=== PATIENT | male | born 1965 | race Two or more races ===

== ENCOUNTER 2019-01-14 07:47 | Inpatient (IN) | payer MEDICAID ==
[~2019-01-14] VITALS: Ht 185.4 cm; Wt 114.3 kg
--- NOTE | 2019-01-14 07:59 | NUR ---
[facility] SINCE A[facility] EMS TO ER C/O ABD PAIN 8/10 FOR 3 DAYS DID HAVE BM LAST NIGHT . O2 SATS RA 93 % AWAITING EVALUATION BY ER PROVIDER. N/C 3L 97%
[2019-01-14] MEDS ORDERED: IV NS 0.9% 1,000 ML BAG IV ONE ×2 (08:00→10:00)
[2019-01-14] MEDS ORDERED: HYDROMORPHONE INJ 2 MG/ML DISP.SYRIN IV ONE (08:00)
[2019-01-14] MEDS ORDERED: METOCLOPRAMIDE HCL 10 MG/2 ML VIAL IV ONE (08:00)
[2019-01-14 08:14] LABS: BASOPHILS # (AUTO) 0.1 /CMM (0.0-0.2); BASOPHILS % (AUTO) 0.6 % (0.0-2.0); HEMATOCRIT 35 % (39-51); HEMOGLOBIN 11.3 g/dL (13.5-17.5); LYMPHOCYTES # (AUTO) 0.6 /CMM (0.8-4.8); MEAN CORPUSCULAR HGB CONC 32 g/dl (31.0-36.0); MEAN CORPUSCULAR VOLUME 90 fL (80-96); MONOCYTES # (AUTO) 0.9 /CMM (0.1-1.30); MONOCYTES % (AUTO) 5.9 % (2.0-12.0); NEUTROPHILS # (AUTO) 14.2 /CMM (1.8-8.9); NEUTROPHILS % (AUTO) 89.5 % (43.0-81.0); PLATELET COUNT (AUTO) 314 /CMM (150-450); RED BLOOD CELL COUNT(AUTO) 3.93 MIL/uL (4.5-6.0); WHITE BLOOD COUNT (AUTO) 15.9 K/uL (4.3-11.0)
[2019-01-14] MEDS ORDERED: HYDROMORPHONE 1 MG/1 ML DISP.SYRIN ONE (08:14)
[2019-01-14] MEDS ORDERED: METOCLOPRAMIDE HCL 10 MG/2 ML VIAL ONE (08:15)
[2019-01-14 08:23] LABS: CALCIUM, SERUM 8.9 mg/dL (8.5-10.1); CARBON DIOXIDE 24 mmol/L (21-32); CHLORIDE 101 mmol/L (98-107); CREATININE 3.4 mg/dL (0.6-1.3); GLUCOSE 133 mg/dL (74-106); SODIUM SERUM 136 mmol/L (136-145); UREA NITROGEN, BLOOD 38 mg/dL (7-18)
[2019-01-14] MEDS ORDERED: LISI10TA5 PO (08:24)
[2019-01-14] MEDS ORDERED: PHEN100C4 PO (08:24)
[2019-01-14] MEDS ORDERED: INSU100I26 SQ (08:24)
[2019-01-14] MEDS ORDERED: ZOLP5TAB2 PO (08:24)
[2019-01-14] MEDS ORDERED: CITA10TA17 PO (08:24)
[2019-01-14] MEDS ORDERED: IBUP-1955 PO (08:24)
[2019-01-14] MEDS ORDERED: CLON0.1T PO (08:24)
[2019-01-14] MEDS ORDERED: PANT40TA2 PO (08:24)
[2019-01-14] MEDS ORDERED: DOCU-141 PO (08:24)
[2019-01-14] MEDS ORDERED: GABA-532 PO (08:24)
[2019-01-14] MEDS ORDERED: ZINC220C8 PO (08:24)
[2019-01-14] MEDS ORDERED: NALT50TA PO (08:24)
[2019-01-14] MEDS ORDERED: INSU100V11 SQ ×2 (08:24)
[2019-01-14] MEDS ORDERED: MAG30ORA PO (08:24)
[2019-01-14] MEDS ORDERED: TRAM50TA2 PO (08:24)
[2019-01-14] MEDS ORDERED: LEVE250T2 PO (08:24)
[2019-01-14] MEDS ORDERED: RIVA10TA PO (08:24)
[2019-01-14] MEDS ORDERED: HYDR-4354 PO (08:24)
[2019-01-14] MEDS ORDERED: METH-406 PO (08:24)
[2019-01-14 08:28] LABS: ALANINE AMINOTRANSFERASE 59 U/L (12-78); ALBUMIN 3.4 g/dL (3.4-5.0); ALKALINE PHOSPHATASE 196 U/L (46-116); ASPARTATE AMINOTRANSFERASE 45 U/L (15-37); BILIRUBIN,DIRECT 0.5 mg/dL (0.0-0.2); BILIRUBIN,TOTAL 1.2 mg/dL (0.2-1.0); LIPASE 45 U/L (73-393); TOTAL PROTEIN, SERUM 8.4 g/dL (6.4-8.2)
--- NOTE | 2019-01-14 09:00 | NUR ---
PT SLEEPING SOUNDLY RESP EVEN UNLABORED
--- NOTE | 2019-01-14 09:26 | NUR ---
MOTHER CALLLED CALLING TO SEE PATIENT UA SENT TO LAB PT HAS CATH URINE BROWNISH CLOUDY
[2019-01-14] MEDS ORDERED: ACETAMINOPHEN ES 500 MG TABLET ONE (09:59)
--- NOTE | 2019-01-14 09:59 | NUR ---
[facility]
[2019-01-14] MEDS ORDERED: ACETAMINOPHEN ES 500 MG TABLET PO ONE (10:00)
[2019-01-14] MEDS ORDERED: CEFTRIAXONE 1GM BAG (ER ONLY) 50 ML IV ONE (10:00)
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
[2019-01-14 10:22] LABS: APPEARANCE,URINE Turbid (CLEAR); BILIRUBIN,URINE SMALL (NEGATIVE); BLOOD, URINE Trace-intact Ery/uL (NEGATIVE); KETONES,URINE Negative (NEGATIVE); LEUKOCYTE ESTERASE ,URINE Large (NEGATIVE); NITRITE, URINE Positive (NEGATIVE); PROTEIN,URINE >=300 mg/dl (NEGATIVE); UGLUCOSE Negative (NEGATIVE); UROBILINOGEN,URINE 0.2 EU/dL (0.2)
[2019-01-14 10:26] LABS: PH,URINE >9.0 (5.0-8.0)
[2019-01-14 10:27] LABS: COLOR,URINE DARK YELLOW (YELLOW)
--- NOTE | 2019-01-14 10:45 | NUR ---
[facility]
--- NOTE | 2019-01-14 10:49 | NUR ---
PT GIVEN LUCIO CATH PER MD ORDER BLOOD AND CLOTS , NOTED THEN URINE YELLOW CLOUDY ROCPHEIN GIIVEN PER MD TEMP 98.5 CHANGED DIAPER yellow soft stool buttock skin good no breakdown
[2019-01-14 10:55] LABS: SQUAMOUS EPITHELIAL CELL,UR Few /HPF (None Seen); URINE AMORPHOUS PHOSPHATES Many /HPF (None Seen)
[2019-01-14 10:56] LABS: BACTERIA,URINE Many /HPF (None Seen)
--- NOTE | 2019-01-14 11:02 | NUR ---
306-2 TELE. PRIMARY NURSE AWARE.
--- NOTE | 2019-01-14 11:13 | NUR ---
[facility]
[2019-01-14 11:19] LABS: TRIPLE PHOSPHATE CRYSTAL,UR Few /HPF (None Seen)
--- NOTE | 2019-01-14 12:24 | NUR ---
TRANSFERED TO FLOOR
--- NOTE | 2019-01-14 12:25 | NUR ---
CLASSIFIED AD CLERKLEARNING SPECIALIST NOTES Received Patient asleep in bed via [place]. A/O x 2, lethargic. Noted VS BP 87/50 HR 112 RR 20 Temp 101F SPO2 98% on 3LPM via [place]. Patient seen by Oneil BREAUX at this time. Breathing even and unlabored with no respiratory distress. Patient noted snoring. No signs and symptoms of pain at this time. Telemonitor in place and operational reading Sinus Tach HR-114. Scott Cath in place and operational with clear, rust/daniel coloured urine and sediments noted. 20g PIV on RAC clean, dry, intact and flushing well. Stool collected per DNP at this time. Stool noted yellowish/brownish diarrhea. Skin assessment pictures taken and placed in chart. Mepilex placed on BILATERAL HEELS. Safety precautions in place. Bed locked and set to lowest position with side rails x 2 up. All needs rendered at this time. Family at bedside. Will continue to monitor.
[2019-01-14] MEDS ORDERED: DEXTROSE 50%-WATER 50 ML DISP.SYRIN IV PRN (13:00)
[2019-01-14] MEDS ORDERED: MAG HYDROX/AL HYDROX/SIMETH 30 ML UDC PO PRN (13:00)
[2019-01-14] MEDS ORDERED: Z GUARD REMEDY 2 OZ OINT TP PRN (13:00)
[2019-01-14] MEDS ORDERED: ZOLPIDEM TARTRATE 5 MG TABLET PO PRN (13:00)
[2019-01-14] MEDS ORDERED: MAGNESIUM HYDROXIDE 30 ML UDC PO PRN (13:00)
[2019-01-14] MEDS ORDERED: *INSULIN REGULAR(HUMULIN R)HUM 100 UNIT/ML VIAL SQ PRN (13:00)
[2019-01-14] MEDS ORDERED: ONDANSETRON HCL/PF 4 MG/2 ML VIAL IVP PRN (13:00)
[2019-01-14] MEDS ORDERED: HYDROMORPHONE INJ 2 MG/ML DISP.SYRIN IV PRN (13:00)
--- NOTE | 2019-01-14 13:00 | NUR ---
(Brother) Jolene (Mother) --cell --home
[2019-01-14] MEDS ORDERED: CLONIDINE HCL 0.1 MG TABLET PO PRN (13:30)
[2019-01-14] MEDS ORDERED: TRAMADOL HCL 50 MG TABLET PO PRN (13:30)
[2019-01-14] MEDS: ACETAMINOPHEN 325 MG TABLET PO PRN ×2 (14:01→21:08)
--- NOTE | 2019-01-14 14:05 | NUR ---
INDEPENDENT DISTRIBUTOR NOTES Noted 100.3F temp. Administered Tylenol 650mg PO. Patient resting and asleep in bed. VS stable. BP 114/93. Telemonitor reading Sinus Tach HR-114. SPO2 100% on 3LPM via NC. Will continue to monitor.
[2019-01-14] MEDS ORDERED: PIPERACILLIN /TAZOBACTAM 3.375 G in IV D5W 50 ML IV ONE (15:00)
[2019-01-14 15:04] LABS: OCCULT BLOOD STOOL NEGATIVE (NEGATIVE)
--- NOTE | 2019-01-14 16:39 | NUR ---
INSPECTOR RAW QUARTZ NOTES Temp 103.1F BP 100/62 HR 119 Placed cool towel on forehead and removed one blanket. Notified Oneil BREAUX. NNO. Follow up on Urine and Blood culture. Will continue to monitor.
[2019-01-14] MEDS: DOCUSATE SODIUM 100 MG CAPSULE PO SCH (17:00)
[2019-01-14] MEDS: CITALOPRAM HYDROBROMIDE 10 MG TABLET PO SCH (17:05)
[2019-01-14] MEDS: LEVETIRACETAM (250 MG) 250 MG TABLET PO SCH (17:08)
[2019-01-14] MEDS: PHENYTOIN EXTENDED RELEASE 100 MG CAPSULE PO SCH (17:08)
[2019-01-14] MEDS: METHOCARBAMOL (750MG) 750 MG TABLET PO SCH ×2 (17:08→21:08)
[2019-01-14] MEDS: GABAPENTIN 100 MG CAPSULE PO SCH ×2 (17:08→21:08)
[2019-01-14] MEDS: BLOOD SUGAR DIAGNOSTIC 1 EACH STRIP VI SCH ×2 (17:09→21:08)
--- NOTE | 2019-01-14 19:17 | NUR ---
FACILITY MANAGER CLOSING NOTES Patient asleep in bed. A/O x 2. VS stable with no acute distress. Breathing even and unlabored with no respiratory distress on 3LPM via NC. No complaints nor signs and symptoms of pain at this time. Telemonitor in place and operational reading Sinus Tach HR-120. Scott Cath in place and operational with clear, rust/daniel coloured urine and sediments noted. 20g PIV on RAC clean, dry, intact and flushing well with NS running at 125ml/hr. Mepilex placed on BILATERAL HEELS. Safety precautions in place. Bed locked and set to lowest position with side rails x 2 up. All needs rendered at this time. Will endorse plan of care to oncoming shift.
--- NOTE | 2019-01-14 19:45 | NUR ---
TELE/RN OPENING NOTES PATIENT RESTING COMFORTABLY IN BED, TELE RHYTHM AT SR 120, TEMPERATURE ELEVATED, COOLING MEASURES PROVIDED. SKIN WARM TO TOUCH, ABDOMEN DISTENDED, ABLE TO OPEN EYES AND CAN VERBALIZE NEEDSS BUT SLEEPY. WILL MONITOR ANY CHANGES AND REPORT FRO ANY CONCERNS.ON OXYGEN VIA NC AT 3L, LUCIO CATHETER DARINING ROXANA COLORED URINEM REQUIRE TURNING AND REPOSITION DUE TO PARAPLEGIA, SKIN ISSUES, IV ON RIGHT AC GAUGE 20 WITH NO S/S OF INFILTRATION. WILL CONTINUE TO MONITOR. BED LOCKED, CALL LIGHTS WITHIN REACH, WILL MONITOR.
[2019-01-14] MEDS: IV NS 0.9% 1,000 ML IV PRN (19:59)
[2019-01-14 20:00] VITALS: BP 93/53
[2019-01-14 20:28] VITALS: BP 93/53
--- NOTE | 2019-01-14 20:29 | NUR ---
TELE/RN NOTES PATIENT IN BED, ASLEEP BUT AROUSABLE, SKIN WARM AND TEMPERATURE ORAL 104.4 DEGREE ORALLY. PULSE RATE AT 120 ST AT 120. HAVING ULTRA SOUND FAMILY INVOLVE. MD AWARE ABOUT BLOOD CULTURE PENDING AND TYLENOL GIVEN 5 HOURS AGO, ORDER FOR COOLING BLANKET, WILL MONITOR.
--- NOTE | 2019-01-14 21:00 | NUR ---
TELE/RN NOTES TEMPERATURE RECHEAK AT 102 DEG F AND TYLENOL 650 MG PO GIVEN , WILL RECHECK AGAIN.
[2019-01-14] MEDS: INSULIN GLARGINE, 100 UNIT/ML CARTRIDGE SQ SCH (21:26)
--- NOTE | 2019-01-14 21:38 | NUR ---
TELE/RN NOTES TELE READING AT 116 AT THIS TIME. BLOOD SUGAR CHECK AT 124,LANTUS SQ GIVEN PATIENT HAD APPLE JUICE AFTER. WILL MONITOR. ALERT, ORIENTED.
[2019-01-14] MEDS: PIPERACILLIN /TAZOBACTAM 3.375 G in IV D5W 100 ML IV SCH (22:06)
[2019-01-15] VITALS (7 sets, daily range): BP systolic 88–113; BP diastolic 53–89
--- NOTE | 2019-01-15 01:10 | NUR ---
TELE/RN NOTES TELE READING ST 106, TEMPERATURE AT 100.3 DEG F
--- NOTE | 2019-01-15 02:24 | NUR ---
TELE/RN NOTED TEMPERATURE AT 99 DEG F, CHANGE AND REPOSITIONED
--- NOTE | 2019-01-15 05:18 | NUR ---
TELE/RN NOTES RECHECKED TEMPERATURE BY MOUTH AT 101.9 DEG F.PATIENT REFUSE TO HAVE BLANKET REMOVE OR GIVE COOLING MEASURES AT THIS TIME. WILL CONTINUE TO MONITOR,
[2019-01-15 06:17] LABS: BASOPHILS % (AUTO) 0.5 % (0.0-2.0); EOSINOPHILS % (AUTO) 0.2 % (0.0-6.0); HEMATOCRIT 31 % (39-51); HEMOGLOBIN 9.8 g/dL (13.5-17.5); LYMPHOCYTES # (AUTO) 0.9 /CMM (0.8-4.8); LYMPHOCYTES % (AUTO) 8.5 % (20.0-44.0); MEAN CORPUSCULAR HGB CONC 32 g/dl (31.0-36.0); MEAN CORPUSCULAR VOLUME 90 fL (80-96); MONOCYTES # (AUTO) 0.7 /CMM (0.1-1.30); MONOCYTES % (AUTO) 6.7 % (2.0-12.0); NEUTROPHILS # (AUTO) 8.6 /CMM (1.8-8.9); NEUTROPHILS % (AUTO) 84.1 % (43.0-81.0); PLATELET COUNT (AUTO) 235 /CMM (150-450); RED BLOOD CELL COUNT(AUTO) 3.42 MIL/uL (4.5-6.0); WHITE BLOOD COUNT (AUTO) 10.2 K/uL (4.3-11.0)
[2019-01-15] MEDS: BLOOD SUGAR DIAGNOSTIC 1 EACH STRIP VI SCH ×4 (06:30→21:49)
[2019-01-15 06:41] LABS: ALBUMIN 2.7 g/dL (3.4-5.0); CALCIUM, SERUM 8.3 mg/dL (8.5-10.1); CREATININE 2.5 mg/dL (0.6-1.3); MAGNESIUM 2.4 mg/dL (1.8-2.4); PHOSPHORUS 2.6 mg/dL (2.5-4.9); POTASSIUM 4.4 mmol/L (3.5-5.1); TOTAL PROTEIN, SERUM 6.9 g/dL (6.4-8.2)
[2019-01-15 06:49] LABS: THYROID STIMULATING HORMONE 0.522 uIU/mL (0.358-3.74)
--- NOTE | 2019-01-15 06:51 | NUR ---
TELE/RN CLOSING NOTES PATIENT TELE READING AT 120, HOB ELEVATED, WATCHING TV, RESPIRATIONS EVEN AND UNLABORED, DENIES PAIN. BLOOD SUGAR CHECK AT 93, HAD ORANGE JUICE, ABLE TO TOLERATE, SKIN WARM TO TOUCH, MONITORED FOR ELEVATED FEVER, COOLING MEASURES PROVIDED, WILL MONITOR. IIV HYDRATION INFUSION,ON LEFT AC. WILL ENDORSE TO AM RN FOR ESAU.
[2019-01-15] MEDS: PIPERACILLIN /TAZOBACTAM 3.375 G in IV D5W 100 ML IV SCH ×3 (07:06→23:01)
[2019-01-15] MEDS: ACETAMINOPHEN 325 MG TABLET PO PRN ×2 (07:36→17:07)
--- NOTE | 2019-01-15 07:43 | NUR ---
rn initial notes received pt awake in bed with nad. sinus tach on the monitor. white cath draining thru gravity , light orange color urine noted. ivf infusing well. positioned for comfort with both heels kept elevated. no discomfort noted. call light within reach. safety ensured, will monitor accordingly
[2019-01-15] MEDS: ZINC SULFATE 220 MG CAPSULE PO SCH (08:43)
[2019-01-15] MEDS: PANTOPRAZOLE 40 MG TABLET.DR PO SCH (08:44)
[2019-01-15] MEDS: LEVETIRACETAM (250 MG) 250 MG TABLET PO SCH ×2 (08:45→17:09)
[2019-01-15] MEDS: METHOCARBAMOL (750MG) 750 MG TABLET PO SCH ×4 (08:45→21:06)
[2019-01-15] MEDS: DOCUSATE SODIUM 100 MG CAPSULE PO SCH ×2 (08:46→17:10)
[2019-01-15] MEDS: CITALOPRAM HYDROBROMIDE 10 MG TABLET PO SCH ×2 (08:46→17:09)
[2019-01-15] MEDS: PHENYTOIN EXTENDED RELEASE 100 MG CAPSULE PO SCH ×3 (08:46→17:08)
[2019-01-15] MEDS: INSULIN GLARGINE, 100 UNIT/ML CARTRIDGE SQ SCH ×3 (09:00→21:00)
[2019-01-15] MEDS: GABAPENTIN 100 MG CAPSULE PO SCH ×4 (09:38→21:06)
--- NOTE | 2019-01-15 10:33 | NUR ---
WOUND CARE CONSULT: PT PRESENTS WITH LEFT HEEL HYPERGRANULAR WOUND, RT HEEL SCAR, SACRAL SCARRING EXTENDING TO BILATERAL BUTTOCKS, ALL PRESENT ON ADMISSION. RECOMMEND DPM CONSULT. DR IRVING NOTIFIED OF CONSULT REQUEST. RECOMMENDATIONS MADE FOR SKIN PROTECTION. DISCUSSED WITH NURSING STAFF. DEFER TO DPM FOR LOWER EXTREMITIES. PT INCONTINENT OF STOOL. LUCIO CATH NOTED. WILL SEE PRN. CANALES IN AGREEMENT WITH PLAN OF CARE. ISOFLEX LOW AIRLOSS BED TO BE PLACED. Addendum: 01/15/19 at 1035 by CHANELLE MADRID WNDNU Amended: Links added.
[2019-01-15] MEDS: HYDROCODONE/APAP 5/325MG 1 EACH TABLET PO PRN (10:38)
--- NOTE | 2019-01-15 15:28 | NUR ---
RN NOTES RECEIVED REPORT FROM MICRO RE PT WITH GM NEG RODS AND POS FOR C-DIFF; SITE ACQUISITION MANAGER GUILLE NOTIFIED AND ISOLATION PRECAUTIONS INITIATED. ARIADNA Mcfadden MADE AWARE
[2019-01-15] MEDS: RIVAROXABAN 10 MG TABLET PO SCH (17:07)
[2019-01-15] MEDS: VANCOMYCIN HCL 125 MG/2.5 ML ORAL.SUSP PO SCH (17:24)
[2019-01-15 18:07] LABS: APPEARANCE,URINE SL CLOUDY (CLEAR); BILIRUBIN,URINE NEGATIVE (NEGATIVE); BLOOD, URINE 3+ Ery/uL (NEGATIVE); COLOR,URINE DARK YELLO (YELLOW); KETONES,URINE NEGATIVE (NEGATIVE); LEUKOCYTE ESTERASE ,URINE 2+ (NEGATIVE); NITRITE, URINE NEGATIVE (NEGATIVE); PROTEIN,URINE 2+ mg/dl (NEGATIVE); UGLUCOSE NEGATIVE (NEGATIVE); UROBILINOGEN,URINE 0.2 EU/dL (0.2)
[2019-01-15 18:17] LABS: CREATININE, URINE 99.3 MG/DL (30.0-125.0); URINE TOTAL PROTEIN 172.1 mg/dL (0-11.9)
[2019-01-15 18:21] LABS: BACTERIA,URINE Moderate /HPF (None Seen); SQUAMOUS EPITHELIAL CELL,UR Rare /HPF (None Seen)
[2019-01-15 18:22] LABS: RBC,URINE 21-50 /HPF (0-2); WBC,URINE 51-80 /HPF (0-3)
--- NOTE | 2019-01-15 18:41 | NUR ---
RN CLOSING NOTES ASSISTED PT WITH REPOSITIONING WITH MERARI HEELS KEPT OFFLOADED AT ALL TIMES. PT SEEN AND ASSESSED BY WOUND RN, INITIAL WOUND CARE DONE DIRECTED. MEDS GIVEN,PT REMAINS ON ANTIBIOTIC TREATMENT. SAFETY PRECAUTIONS ENSURED AT ALL TIMES. LAB RESULTS RELAYED TO A MACHO, PT ON ISOLATION PRECAUTIONS. URINE SENT.. PT REFUSED MEALS , FAMILY AND A MACHO AWARE. LANTUS HELD, A MACHO AWARE. PRN MED GIVEN FOR PAIN MANAGEMENT. AFEBRILE DURING THIS SHIFT. WILL ENDORSE TO NEXT SHIFT RN FOR CONTINUITY OF CARE IN STABLE CONDITION. Addendum: 01/15/19 at 1918 by EMILIA ARREDONDO RN NOTES VERBAL ORDER RECEIVED FROM A MACHO RE IVF, ENDORSED TO NEXT SHIFT RN FOR F/UP
[2019-01-15 18:43] LABS: EOSINOPHIL,URINE None Seen
--- NOTE | 2019-01-15 19:00 | NUR ---
RN vladimirsurwendy opening notes Received Pt from morning nurse. Pt is resting in bed comfortably. Awaken easily. Respiration is normal. Pt is on 2 L NC O2 sat is 96%. Pt denies any pain or discomfort at this time. No nausea or vomiting. IV sites on LAC # 20 is intact, patent and infusing well NS 125ml/hr. Instructed to call. Contact precautions for cdef is maintained. Safety precautions is maintained. Bed at low position, brakes on, side rails up x2 and call light is within reach. Will continue to monitor.
[2019-01-15] MEDS ORDERED: IV D5/ 0.9% NACL 1,000 ML IV ONE (19:30)
--- NOTE | 2019-01-15 21:50 | NUR ---
RN medsurwendy notes Holding the insulin Lantus because Pt's keep refusing to eat. Pt only drank 2 orange juices. Pt's blood glucose was 110. Pt education given. Pt verbalized understanding and keep refusing. Will keep to monitor.
[2019-01-16] MEDS: VANCOMYCIN HCL 125 MG/2.5 ML ORAL.SUSP PO SCH ×4 (00:04→17:17)
[2019-01-16 02:34] VITALS: BP 116/69
--- NOTE | 2019-01-16 02:34 | NUR ---
RN medsurg notes Pt is resting in bed comfortably. Awaken easily. Pt denies any pain or discomfort at this time. NO SOB. VS is stable and Afebrile. Will continue to monitor.
[2019-01-16 06:12] LABS: BASOPHILS % (AUTO) 0.3 % (0.0-2.0); EOSINOPHILS % (AUTO) 2.1 % (0.0-6.0); HEMATOCRIT 27 % (39-51); HEMOGLOBIN 8.6 g/dL (13.5-17.5); LYMPHOCYTES % (AUTO) 10.8 % (20.0-44.0); MEAN CORPUSCULAR HGB CONC 32 g/dl (31.0-36.0); MEAN CORPUSCULAR VOLUME 90 fL (80-96); MONOCYTES # (AUTO) 0.8 /CMM (0.1-1.30); NEUTROPHILS # (AUTO) 7.1 /CMM (1.8-8.9); NEUTROPHILS % (AUTO) 77.8 % (43.0-81.0); PLATELET COUNT (AUTO) 189 /CMM (150-450); RED BLOOD CELL COUNT(AUTO) 2.96 MIL/uL (4.5-6.0); WHITE BLOOD COUNT (AUTO) 9.2 K/uL (4.3-11.0)
[2019-01-16 06:29] LABS: ALBUMIN 2.5 g/dL (3.4-5.0); BILIRUBIN,TOTAL 0.6 mg/dL (0.2-1.0); CALCIUM, SERUM 8.4 mg/dL (8.5-10.1); CREATININE 1.5 mg/dL (0.6-1.3); MAGNESIUM 2.4 mg/dL (1.8-2.4); POTASSIUM 4.4 mmol/L (3.5-5.1); TOTAL PROTEIN, SERUM 6.8 g/dL (6.4-8.2)
[2019-01-16 06:33] LABS: PHENYTOIN (DILANTIN) 9.4 ug/ml (10.0-20.0)
[2019-01-16] MEDS: BLOOD SUGAR DIAGNOSTIC 1 EACH STRIP VI SCH ×4 (06:48→21:06)
[2019-01-16] MEDS: INSULIN REGULAR, HUMAN 100 UNIT/ML 3 ML VIAL SQ PRN (06:52)
--- NOTE | 2019-01-16 07:00 | NUR ---
RN medsurg closing notes Pt is alert and oriented X3. Pt is laying in bed comfortably watching TV. No SOB. No S/S of distress noted. No nausea and vomiting. IV sites is intact, patent and infusing well. Routine meds given and skin care provided. All needs met. Contact precautions is maintained. Safety precautions is maintained. Turning and repositioning @2hr and offloaded of both heels and elbows all the times. VS is stable. Afebrile during the shift. Bed at low position and call light is within reach. Will endorse to morning nurse for ESAU.
--- NOTE | 2019-01-16 07:30 | NUR ---
RN MS NOTES PT IN BED, ASLEEP, EASY TO AROUSE, ALERT AND VERBALLY RESPONSIVE, OFFERED BREAKFAST, STATED THAT HE DOES NOT WANT TO EAT AT THIS TIME, KEPT COMFORTABLE, DENIES PAIN, NOT IN DISTRESS, CALL LIGHT WITHIN REACH.
[2019-01-16 08:00] VITALS: BP 100/55
[2019-01-16] MEDS: GABAPENTIN 100 MG CAPSULE PO SCH ×4 (08:17→20:54)
[2019-01-16] MEDS: PANTOPRAZOLE 40 MG TABLET.DR PO SCH (08:17)
[2019-01-16] MEDS: PIPERACILLIN /TAZOBACTAM 3.375 G in IV D5W 100 ML IV SCH ×2 (08:17→15:12)
[2019-01-16] MEDS: LEVETIRACETAM (250 MG) 250 MG TABLET PO SCH ×2 (08:17→16:37)
[2019-01-16] MEDS: CITALOPRAM HYDROBROMIDE 10 MG TABLET PO SCH ×2 (08:17→16:37)
[2019-01-16] MEDS: METHOCARBAMOL (750MG) 750 MG TABLET PO SCH ×4 (08:17→20:54)
[2019-01-16] MEDS: ZINC SULFATE 220 MG CAPSULE PO SCH (08:17)
[2019-01-16] MEDS: DOCUSATE SODIUM 100 MG CAPSULE PO SCH ×2 (08:17→16:37)
[2019-01-16] MEDS: PHENYTOIN EXTENDED RELEASE 100 MG CAPSULE PO SCH ×3 (08:17→16:37)
[2019-01-16] MEDS: AMMONIUM LACTATE 227 GM BOTTLE TP SCH (08:30)
[2019-01-16] MEDS: INSULIN GLARGINE, 100 UNIT/ML CARTRIDGE SQ SCH ×2 (09:00→21:00)
--- NOTE | 2019-01-16 09:00 | NUR ---
RN MS NOTES LANTUS NOT GIVEN, PT DID NOT EAT BREAKFAST.
[2019-01-16] MEDS: CLOTRIMAZOLE 1% 15 GM TUBE TP SCH (11:24)
[2019-01-16] MEDS: IV NS 0.9% 1,000 ML IV PRN (12:13)
--- NOTE | 2019-01-16 13:00 | NUR ---
RN MS NOTES PT IN BED, AWAKE, ALERT AND VERBALLY RESPONSIVE, NO COMPLAINT OF PAIN, ENCOURAGED TO INCREASE ORAL INTAKE, ABLE TO EAT SOME LUNCH, SEEN BY DIETITIAN, ISOLATION PRECAUTIONS OBSERVED, VISITED BY FAMILY MEMBERS, ASSISTED WITH NEEDS, PERINEAL CARE PROVIDED NEEDED.
[2019-01-16 15:30] VITALS: BP 112/65
[2019-01-16] MEDS: RIVAROXABAN 10 MG TABLET PO SCH (16:38)
[2019-01-16 17:12] LABS: FERRITIN 661 ng/mL (8-388)
[2019-01-16] MEDS: GLUCERNA SHAKE 237 ML CAN PO SCH (17:35)
--- NOTE | 2019-01-16 18:17 | NUR ---
RN MS NOTES PT IN BED, AWAKE, ALERT AND ORIENTED, EATING DINNER, NO COMPLAINT OF PAIN, NOT IN DISTRESS, IV FLUIDS INFUSING WELL, ENCOURAGED INCREASED PO INTAKE, SEEN BY YOLANDA JIG BORE OPERATOR FOR GI, WITH EPISODES OF SOFT BROWN STOOLS, NO DIARRHEA OR BLOODY STOOLS, F/C INTACT AND DRAINING WELL WITH CLEAR, YELLOW URINE, SKIN TREATMENTS DONE, REPOSITIONED Q2 HOURS, PERINEAL CARE PROVIDED, ALL NEEDS ATTENDED.
--- NOTE | 2019-01-16 19:00 | NUR ---
MS RN OPENING NOTES Received patient awake on Salazar's position on bed. With patent IV line RAC G#20 with NS infusing well @ 125ml/hr as ordered. On O2 inhalation via NC @ 2LPM, SpO2 maintained > 92%. With minimal complaints of back pain, patient tolerates the pain and refusing any pain medications offered. With patent indwelling FC with yellow urine output noted. With poor appetite noted. Call light within reach. Kept bed low and locked. Will continue to monitor accordingly.
[2019-01-16 19:03] LABS: IRON, SERUM 25 ug/dl (50-175); TOTAL IRON BINDING CAPACITY 119 ug/dl (250-450)
[2019-01-16 20:00] VITALS: BP 123/66
--- NOTE | 2019-01-16 20:26 | NUR ---
MS RN NOTES Called up Rx for the due Ceftriaxone of the patient. Per Noam, stocks will be sent to the floor before the pharmacy closes.
[2019-01-16] MEDS: METRONIDAZOLE 500 MG TABLET PO SCH (20:54)
[2019-01-16] MEDS: CEFTRIAXONE 1 G in IV D5W 50 ML IV SCH (20:56)
--- NOTE | 2019-01-16 21:07 | NUR ---
MS RN NOTES BS at this time - 122mg/dl. Patient not eating. Held Glargine and sliding scale insulin at this time. Will continue to monitor accordingly.
[2019-01-17] MEDS: VANCOMYCIN HCL 125 MG/2.5 ML ORAL.SUSP PO SCH ×4 (01:01→17:10)
[2019-01-17] MEDS: IV NS 0.9% 1,000 ML IV PRN ×2 (01:31→15:05)
[2019-01-17] MEDS: METRONIDAZOLE 500 MG TABLET PO SCH ×3 (04:07→20:39)
[2019-01-17] MEDS: PANTOPRAZOLE 40 MG TABLET.DR PO SCH (06:31)
[2019-01-17] MEDS: BLOOD SUGAR DIAGNOSTIC 1 EACH STRIP VI SCH ×4 (06:31→21:28)
--- NOTE | 2019-01-17 07:22 | NUR ---
MS RN CLOSING NOTES Patient asleep, easily awaken. On O2 inhalation via NC @ 2LPM. No SOB/respiratory distress noted. Appears comfortable, no s/sx of discomfort noted. Kept bed low and locked. Call light within easy reach. Endorsed to the next shift.
--- NOTE | 2019-01-17 07:30 | NUR ---
RN MS NOTES PT IN BED, AWAKE, ALERT AND VERBALLY RESPONSIVE, NO COMPLAINT AT THIS TIME, RESPIRATIONS NORMAL, CALL LIGHT WITHIN REACH, IV FLUIDS INFUSING WELL, NEEDS ATTENDED.
[2019-01-17 07:37] LABS: BASOPHILS % (AUTO) 0.6 % (0.0-2.0); EOSINOPHILS % (AUTO) 3.7 % (0.0-6.0); HEMATOCRIT 26 % (39-51); HEMOGLOBIN 8.4 g/dL (13.5-17.5); LYMPHOCYTES # (AUTO) 1.2 /CMM (0.8-4.8); LYMPHOCYTES % (AUTO) 16.7 % (20.0-44.0); MEAN CORPUSCULAR HGB CONC 32 g/dl (31.0-36.0); MEAN CORPUSCULAR VOLUME 91 fL (80-96); MONOCYTES # (AUTO) 0.9 /CMM (0.1-1.30); MONOCYTES % (AUTO) 11.7 % (2.0-12.0); NEUTROPHILS % (AUTO) 67.3 % (43.0-81.0); PLATELET COUNT (AUTO) 208 /CMM (150-450); RED BLOOD CELL COUNT(AUTO) 2.88 MIL/uL (4.5-6.0); WHITE BLOOD COUNT (AUTO) 7.4 K/uL (4.3-11.0)
[2019-01-17 07:44] LABS: CALCIUM, SERUM 8.4 mg/dL (8.5-10.1); MAGNESIUM 2.1 mg/dL (1.8-2.4); PHOSPHORUS 2.9 mg/dL (2.5-4.9); POTASSIUM 4.1 mmol/L (3.5-5.1)
[2019-01-17 08:00] VITALS: BP 135/83
[2019-01-17] MEDS: GABAPENTIN 100 MG CAPSULE PO SCH ×4 (08:33→20:38)
[2019-01-17] MEDS: DOCUSATE SODIUM 100 MG CAPSULE PO SCH ×2 (08:33→17:10)
[2019-01-17] MEDS: METHOCARBAMOL (750MG) 750 MG TABLET PO SCH ×4 (08:33→20:38)
[2019-01-17] MEDS: CITALOPRAM HYDROBROMIDE 10 MG TABLET PO SCH ×2 (08:33→17:09)
[2019-01-17] MEDS: PHENYTOIN EXTENDED RELEASE 100 MG CAPSULE PO SCH ×3 (08:33→17:09)
[2019-01-17] MEDS: LEVETIRACETAM (250 MG) 250 MG TABLET PO SCH ×2 (08:33→17:09)
[2019-01-17] MEDS: ZINC SULFATE 220 MG CAPSULE PO SCH (08:33)
[2019-01-17] MEDS: AMMONIUM LACTATE 227 GM BOTTLE TP SCH (08:37)
[2019-01-17] MEDS: CLOTRIMAZOLE 1% 15 GM TUBE TP SCH (08:37)
[2019-01-17] MEDS: GLUCERNA SHAKE 237 ML CAN PO SCH ×2 (08:37→17:20)
[2019-01-17] MEDS: INSULIN GLARGINE, 100 UNIT/ML CARTRIDGE SQ SCH ×2 (09:00→21:00)
--- NOTE | 2019-01-17 09:00 | NUR ---
RN MS NOTES INSULIN NOT ADMINISTERED, PT WITH POOR PO INTAKE.
--- NOTE | 2019-01-17 13:00 | NUR ---
RN MS NOTES PT IN BED, RESTING, NO COMPLAINT OF PAIN, NOT IN DISTRESS, IV FLUIDS INFUSING WELL, F/C DRAINING WELL, PT SEEN BY DR. IVY, DISCHARGE ORDER GIVEN, PT INFORMED, PER PT, HE DOES NOT WANT TO COME BACK TO HIS OLD FACILITY, COMPONENT PREP OPERATOR INFORMED, RECEIVED CALL FROM PT'S MOM MATT, WOULD LIKE TO SPEAK WITH DR. CATA MD INFORMED, AWAITING PLACEMENT ARRANGEMENTS.
[2019-01-17 16:00] VITALS: BP 142/86
[2019-01-17] MEDS: RIVAROXABAN 10 MG TABLET PO SCH (17:11)
--- NOTE | 2019-01-17 18:23 | NUR ---
RN MS NOTES PT IN BED, AWAKE, NOT IN PAIN OR DISTRESS, ASSISTED WITH MEALS, ENCOURAGED INCREASED PO INTAKE, MIDLINE PLACEMENT DONE BY EMMANUEL TOLEDO, TOLERATED PROCEDURE WELL, IV FLUIDS INFUSING WELL, PM CARE RENDERED, ASSISTED IN REPOSITIONING, ALL NEEDS ATTENDED.
[2019-01-17 19:08] LABS: *SPE A/G RATIO 0.8 (0.7-1.7); *SPE ALPHA-1-GLOBULIN 0.4 g/dL (0.0-0.4); *SPE ALPHA-2-GLOBULIN 1.1 g/dL (0.4-1.0); *SPE BETA GLOBULIN 1.1 g/dL (0.7-1.3); *SPE GLOBULIN, TOTAL 3.7 g/dL (2.2-3.9); *SPE M-SPIKE Not Observed g/dL (Not Observed); *SPEGAMMA GLOBULIN 1.1 g/dL (0.4-1.8); PTH, INTACT 75 pg/mL (15-65)
--- NOTE | 2019-01-17 19:15 | NUR ---
MS RN KAY WATTS Received patient awake on bed, with O2 inahalation via NC @ 2LPM, no SOB/respiratory distress noted. No complaints made at this time. With FC indwelling well with urine output noted. Kept bed low and locked. Side rails up. Call light within easy reach. Will continue to monitor accordingly.
[2019-01-17] MEDS: CEFTRIAXONE 1 G in IV D5W 50 ML IV SCH (19:50)
[2019-01-17 20:02] VITALS: BP 149/79
[2019-01-17] MEDS: ZOLPIDEM TARTRATE 5 MG TABLET PO PRN (20:39)
--- NOTE | 2019-01-17 21:29 | NUR ---
MS RN NOTES BS - 100. Held all insulins at this time. Will continue to monitor patient accordingly.
[2019-01-18] MEDS: VANCOMYCIN HCL 125 MG/2.5 ML ORAL.SUSP PO SCH ×4 (00:42→17:33)
[2019-01-18] MEDS: IV NS 0.9% 1,000 ML IV PRN ×2 (00:43→10:31)
[2019-01-18] MEDS: METRONIDAZOLE 500 MG TABLET PO SCH ×3 (05:06→21:32)
--- NOTE | 2019-01-18 06:38 | NUR ---
MS RN CLOSING NOTES Patient asleep, easily awaken. On O2 inhalation via NC @ 2LPM, no SOB/respiratory distress noted. All due meds given as ordered. All nursing needs attended, kept clean, dry and comfortable. No new complaints made, afebrile the whole shift. Kept bed low and locked, call light within easy reach. For D/C. Endorsed to the next shift.
[2019-01-18] MEDS: PANTOPRAZOLE 40 MG TABLET.DR PO SCH (06:52)
[2019-01-18] MEDS: BLOOD SUGAR DIAGNOSTIC 1 EACH STRIP VI SCH ×4 (06:53→21:33)
--- NOTE | 2019-01-18 07:42 | NUR ---
MS RN OPENING NOTES RECEIVED PT AWAKE IN BED, A/O X2-3. TOLERATING RA, WITH NO ACUTE RESPIRATORY DISTRESS NOTED. PT STATED HAS GENERALIZED BODY PAIN AND JUST HAD PAIN MEDICINE. PT DENIES CONCERNS AND QUESTIONS DURING ROUNDS. IVF NS AT 125ML/HR TO ZAFAR G18, INTACT AND FLUID INFUSING WELL. FC IN PLACE, CLEAR YELLOW URINE NOTED IN THE BAG. PT KEPT COMFORTABLE. HOB ELEVATED. PT'S BED KEPT IN LOWEST, LOCKED POSITION WITH SR X3. CALL LIGHT AND FLUID WITHIN REACH. WILL CONTINUE PLAN OF CARE.
[2019-01-18 08:00] VITALS: BP 139/71
[2019-01-18] MEDS: GLUCERNA SHAKE 237 ML CAN PO SCH ×2 (08:45→17:38)
[2019-01-18] MEDS: DOCUSATE SODIUM 100 MG CAPSULE PO SCH ×2 (09:00→17:00)
[2019-01-18] MEDS: GABAPENTIN 100 MG CAPSULE PO SCH ×2 (09:16→13:01)
[2019-01-18] MEDS: PHENYTOIN EXTENDED RELEASE 100 MG CAPSULE PO SCH ×3 (09:16→17:32)
[2019-01-18] MEDS: LEVETIRACETAM (250 MG) 250 MG TABLET PO SCH ×2 (09:16→17:32)
[2019-01-18] MEDS: CITALOPRAM HYDROBROMIDE 10 MG TABLET PO SCH ×2 (09:16→17:32)
[2019-01-18] MEDS: ZINC SULFATE 220 MG CAPSULE PO SCH (09:16)
[2019-01-18] MEDS: METHOCARBAMOL (750MG) 750 MG TABLET PO SCH ×4 (09:16→21:32)
[2019-01-18] MEDS: INSULIN GLARGINE, 100 UNIT/ML CARTRIDGE SQ SCH ×2 (09:24→21:00)
[2019-01-18] MEDS: AMMONIUM LACTATE 227 GM BOTTLE TP SCH (09:26)
[2019-01-18] MEDS: CLOTRIMAZOLE 1% 15 GM TUBE TP SCH (09:26)
--- NOTE | 2019-01-18 12:40 | NUR ---
MS RN NOTE SPOKE TO CRESCENCIO/MARLENA REGARDING DISCHARGE PLAN. PER CRESCENCIO, FAMILY IS REQUESTING PLACEMENT AROUND [facility]. AND MOST LIKELY DISCHARGE IS NOT TODAY. AWAITING FOR PLACEMENT. WILL ENDORSE TO NEXT NURSE.
[2019-01-18 16:00] VITALS: BP 136/84
[2019-01-18] MEDS: RIVAROXABAN 10 MG TABLET PO SCH (17:32)
[2019-01-18] MEDS: GABAPENTIN 400 MG CAPSULE PO SCH ×2 (17:33→21:32)
[2019-01-18] MEDS: HYDROCODONE/APAP 5/325MG 1 EACH TABLET PO PRN ×2 (17:33→21:39)
--- NOTE | 2019-01-18 18:41 | NUR ---
MS RN CLOSING NOTES PT REMAINS IN BED, A/O X2-3. TOLERATING RA, WITH NO ACUTE RESPIRATORY DISTRESS NOTED. PT HAS GENERALIZED BODY PAIN, TOLERABLE PAIN AT THIS TIME, HAD NORCO PRN AT 1733, REASSESSED AND PAIN MED IS EFFECTIVE. PIV MIDLINE ZAFAR G18, FLUSHED WITH NS, INTACT AND OPERATIONAL. FC IN PLACE, CLEAR YELLOW URINE NOTED IN THE BAG WITH URINE OUTPUT OF 1100ML. PT KEPT COMFORTABLE. ALL NEEDS AND CARE PROVIDED. HOB ELEVATED. REPOSITIONING [id number]. PT'S BED KEPT IN LOWEST, LOCKED POSITION WITH SR X3. CALL LIGHT AND FLUID WITHIN REACH. WILL ENDORSE TO INCOMING NIGHT NURSE FOR ESAU.
--- NOTE | 2019-01-18 19:20 | NUR ---
MS RN RECEIVE PT IN BED AWAKE A/O X 2, WATCHING TV, NO S/S OF DISTRESS, SAFETY MEASURES IN PLACE. WILL CONTINUE TO MONITOR
[2019-01-18 20:00] VITALS: BP 138/69
[2019-01-18] MEDS: CEFTRIAXONE 1 G in IV D5W 50 ML IV SCH (21:13)
[2019-01-18] MEDS: ZOLPIDEM TARTRATE 5 MG TABLET PO PRN (21:32)
--- NOTE | 2019-01-18 22:00 | NUR ---
Blood sugar 91 mg/dl. Held all insulins at this time. pt also refused non admin lantus 42 units insulin. educated patient about risks and benefits. Will continue to monitor
[2019-01-19] MEDS: VANCOMYCIN HCL 125 MG/2.5 ML ORAL.SUSP PO SCH ×4 (00:03→17:01)
[2019-01-19] MEDS: METRONIDAZOLE 500 MG TABLET PO SCH ×2 (05:19→12:19)
[2019-01-19] MEDS: HYDROCODONE/APAP 5/325MG 1 EACH TABLET PO PRN ×2 (05:20→09:23)
[2019-01-19] MEDS: BLOOD SUGAR DIAGNOSTIC 1 EACH STRIP VI SCH ×3 (06:02→16:55)
[2019-01-19] MEDS: INSULIN REGULAR, HUMAN 100 UNIT/ML 3 ML VIAL SQ PRN (06:03)
--- NOTE | 2019-01-19 06:21 | NUR ---
MS RN ASLEEP AND EASILY AWAKEN, RESPIRATIONS EVEN AND UNLABORED. SLEPT WELL THROUGHOUT THE NIGHT. NO SIGNIFICANT CHANGES THROUGHOUT THE SHIFT. KEPT CLEAN AND DRY AND COMFORTABLE. NEEDS ATTENDED AND ANTICIPATED, AM CARE RENDERED, REPOSITION EVERY 2 HOURS. OFFLOAD HEELS AND ELBOWS. NO C/O OF PAIN. SAFETY MEASURES AT ALL TIMES. ENDORSE TO THE NEXT SHIFT. Addendum: 01/19/19 at 0642 by CM BOGGS RN NO ACTIVE BLEEDING
--- NOTE | 2019-01-19 06:42 | NUR ---
ASKED LAB TO RE DRAW BLOOD, BLOOD CONTAMINATED WITH MIDLINE
[2019-01-19 06:50] LABS: ALBUMIN 2.6 g/dL (3.4-5.0); BILIRUBIN,TOTAL 0.4 mg/dL (0.2-1.0); CALCIUM, SERUM 8.8 mg/dL (8.5-10.1); CREATININE 0.9 mg/dL (0.6-1.3); MAGNESIUM 1.4 mg/dL (1.8-2.4); PHOSPHORUS 2.8 mg/dL (2.5-4.9); POTASSIUM 3.9 mmol/L (3.5-5.1); TOTAL PROTEIN, SERUM 6.8 g/dL (6.4-8.2)
[2019-01-19 07:12] LABS: BASOPHILS # (AUTO) 0.1 /CMM (0.0-0.2); BASOPHILS % (AUTO) 1.3 % (0.0-2.0); EOSINOPHILS % (AUTO) 4.5 % (0.0-6.0); HEMATOCRIT 27 % (39-51); HEMOGLOBIN 8.9 g/dL (13.5-17.5); LYMPHOCYTES # (AUTO) 1.8 /CMM (0.8-4.8); MEAN CORPUSCULAR HGB CONC 33 g/dl (31.0-36.0); MEAN CORPUSCULAR VOLUME 90 fL (80-96); MONOCYTES # (AUTO) 0.8 /CMM (0.1-1.30); MONOCYTES % (AUTO) 9.8 % (2.0-12.0); NEUTROPHILS # (AUTO) 5.1 /CMM (1.8-8.9); NEUTROPHILS % (AUTO) 62.4 % (43.0-81.0); PLATELET COUNT (AUTO) 263 /CMM (150-450); RED BLOOD CELL COUNT(AUTO) 3.06 MIL/uL (4.5-6.0); WHITE BLOOD COUNT (AUTO) 8.1 K/uL (4.3-11.0)
--- NOTE | 2019-01-19 07:46 | NUR ---
MS RN OPENING NOTES RECEIVED PT LAYING IN BED, RESTING COMFORTABLY. PT IS EASILY AROUSABLE. RESPIRATIONS ARE EVEN AND UNLABORED, NOT IN ANY ACUTE DISTRESS NOTED. PT DENIES ANY PAIN AT THIS TIME, NO C/O SOB, N/V. MIDLINE TO ZAFAR INTACT, NO INFILTRATION NOTED. DRESSING KEPT CLEAN AND DRY. SAFETY MEASURES ARE IN PLACE. INSTRUCTED PT TO USE CALL LIGHT WHEN ASSISTANCE IS NEEDED, CALL LIGHT IS LEFT WITHIN REACH. WILL MONITOR THROUGHOUT SHIFT FOR CONTINUITY OF CARE.
[2019-01-19 08:00] VITALS: BP_SYST 124; BP_SYST 129; BP_DIAS 72
[2019-01-19] MEDS: PANTOPRAZOLE 40 MG TABLET.DR PO SCH (08:28)
[2019-01-19] MEDS: CITALOPRAM HYDROBROMIDE 10 MG TABLET PO SCH ×2 (08:28→16:54)
[2019-01-19] MEDS: ZINC SULFATE 220 MG CAPSULE PO SCH (08:28)
[2019-01-19] MEDS: DOCUSATE SODIUM 100 MG CAPSULE PO SCH ×2 (08:28→16:54)
[2019-01-19] MEDS: LEVETIRACETAM (250 MG) 250 MG TABLET PO SCH ×2 (08:28→16:54)
[2019-01-19] MEDS: GABAPENTIN 400 MG CAPSULE PO SCH ×4 (08:28→20:25)
[2019-01-19] MEDS: METHOCARBAMOL (750MG) 750 MG TABLET PO SCH ×4 (08:32→20:24)
[2019-01-19] MEDS: GLUCERNA SHAKE 237 ML CAN PO SCH ×2 (08:43→16:54)
[2019-01-19] MEDS: CLOTRIMAZOLE 1% 15 GM TUBE TP SCH (08:46)
[2019-01-19] MEDS: AMMONIUM LACTATE 227 GM BOTTLE TP SCH (08:47)
[2019-01-19] MEDS: INSULIN GLARGINE, 100 UNIT/ML CARTRIDGE SQ SCH (08:51)
[2019-01-19] MEDS: PHENYTOIN EXTENDED RELEASE 100 MG CAPSULE PO SCH ×3 (09:22→16:54)
[2019-01-19] MEDS: Magnesium 1GM/D5W 100ML PREMIX 100 ML IV SCH ×4 (11:47→14:57)
--- NOTE | 2019-01-19 11:54 | NUR ---
MS RN NOTES-- BLOOD SUGAR 85. NO INSULIN COVERAGE NEEDED. NO S/SX OF HYPOGLYCEMIA. WILL CONTINUE TO MONITOR.
--- NOTE | 2019-01-19 15:09 | NUR ---
MS RN NOTES-- PT ABLE TO MAKE NEEDS KNOWN. NEEDS MET AND RENDERED. PT DOES NOT APPEAR TO BE IN ANY APPARENT DISTRESS. WILL CONTINUE TO MONITOR.
[2019-01-19 16:00] VITALS: BP 131/82
[2019-01-19] MEDS: RIVAROXABAN 10 MG TABLET PO SCH (16:58)
--- NOTE | 2019-01-19 17:05 | NUR ---
MS RN NOTES-- BLOOD SUGAR 82. NO INSULIN COVERAGE. NO S/SX OF HYPOGLYCEMIA. WILL MONITOR CLOSELY.
--- NOTE | 2019-01-19 19:21 | NUR ---
MS RN CLOSING NOTES ALL DUE MEDS GIVEN. NEED MET AND RENDERED. PT IS A/O 3, AFEBRILE. RESPIRATIONS ARE EVEN AND UNLABORED, NOT IN ANY ACUTE DISTRESS NOTED. NO C/O SOB, N/V. MIDLINE TO ZAFAR INTACT, NO INFILTRATION NOTED. DRESSING KEPT CLEAN AND DRY. EXPLAINED DISCHARGE PAPERWORK TO PT WITH VERBAL AND WRITTEN UNDERSTANDING. WAITING FOR TRANSPORTATION. REMINDED PT TO USE CALL LIGHT WHEN ASSISTNACE IS NEEDED, CALL LIGHT IS LEFT WITHIN REACH. ENDORSED TO NEXT SHIFT FOR CONTINUITY OF CARE.
--- NOTE | 2019-01-19 19:25 | NUR ---
MS RN OPENING NOTES Patient received in bed, alert, oriented x 3. Breathing even and unlabored. Not in any distress. ZAFAR Midline intact and patent with no signs of infiltration. Patient is for discharge. CM currently at patient's bedside. Will monitor accordingly
--- NOTE | 2019-01-19 19:50 | NUR ---
RN NOTES As per case picker Stanislav, patient is for discharge to [facility]. [facility] will pick the patient up around 2100-2130hrs
--- NOTE | 2019-01-19 19:55 | NUR ---
RN NOTES [facility]
[2019-01-19] MEDS: CEFTRIAXONE 1 G in IV D5W 50 ML IV SCH (20:11)
--- NOTE | 2019-01-19 21:15 | NUR ---
RN NOTES Patient cleaned and changed. ZAFAR midline intact. Due medications given as ordered. Scott in place, draining clear yellow urine.
--- NOTE | 2019-01-19 21:30 | NUR ---
RN NOTES Discharge instruction and documents given to patient. Given report to [facility] people. ID band out. Patient left with [facility] personnel in stable condition.
== END 2019-01-19 21:30 | DRG 720 ==
LOC: ER 07:47 → TELE 11:45 → MED 01-15 08:42
PROVIDERS: ADMIT Hospitalist
PROC: 05H933Z Insertion of Infusion Device into Right Brachial Vein, Percutaneous Approach (ICD-10-PCS; principal; 2019-01-17)
DX: A41.9 Sepsis, unspecified organism (principal); N17.0 Acute kidney failure with tubular necrosis; A04.72 Enterocolitis due to Clostridium difficile, not specified as recurrent; E11.42 Type 2 diabetes mellitus with diabetic polyneuropathy; E11.621 Type 2 diabetes mellitus with foot ulcer; D68.9 Coagulation defect, unspecified; N31.9 Neuromuscular dysfunction of bladder, unspecified; B35.1 Tinea unguium; G82.20 Paraplegia, unspecified; L97.429 Non-pressure chronic ulcer of left heel and midfoot with unspecified severity; G40.909 Epilepsy, unspecified, not intractable, without status epilepticus; B35.3 Tinea pedis; F32.9 Major depressive disorder, single episode, unspecified; N39.0 Urinary tract infection, site not specified; B96.4 Proteus (mirabilis) (morganii) as the cause of diseases classified elsewhere; F41.9 Anxiety disorder, unspecified; I10 Essential (primary) hypertension; G89.29 Other chronic pain; M54.9 Dorsalgia, unspecified; R65.20 Severe sepsis without septic shock; N40.1 Benign prostatic hyperplasia with lower urinary tract symptoms; S91.119A Laceration without foreign body of unspecified toe without damage to nail, initial encounter; X58.XXXA Exposure to other specified factors, initial encounter; Y92.89 Other specified places as the place of occurrence of the external cause; G47.9 Sleep disorder, unspecified; D64.9 Anemia, unspecified; R33.8 Other retention of urine; E44.1 Mild protein-calorie malnutrition; Z68.33 Body mass index [BMI] 33.0-33.9, adult
CPT/HCPCS: 36415; 71045-TC; 73630-TC; 76770-TC; 80048-TC; 80053-TC; 80061-TC; 80076-TC; 80185-TC; 81000-TC; 82272-TC; 82550-TC; 82570-TC; 82728-TC; 82962-TC; 83540-TC; 83605-TC; 83690-TC; 83735-TC; 83970; 84100-TC; 84155; 84155-TC; 84165; 84300-TC; 84443-TC; 84484-TC; 85025-TC; 85730-TC; 87040-TC; 87045-TC; 87081-TC; 87086-TC; 87186-TC; 89055; 94799-TC; A6402; G0378; J0696; J1170; J1815; J2543; J2765; J3475; J7030; J7042; J7060